=== PATIENT | female | born 1990 | race Caucasian/White ===

== ENCOUNTER 2023-04-21 15:17 | Emergency (ER) | payer OTHER, MEDICAID ==
[~2023-04-21] VITALS: Ht 177 cm; Wt 235.0 kg
[2023-04-21 15:55] LABS: BILIRUBIN,URINE NEGATIVE (NEGATIVE); CLARITY,URINE SL CLOUDY; COLOR,URINE YELLOW; GLUCOSE, URINE (UA) NEGATIVE (NEGATIVE); KETONES,URINE NEGATIVE (NEGATIVE); LEUKOCYTE ESTERASE ,URINE TRACE (NEGATIVE); NITRITE,URINE NEGATIVE (NEGATIVE); PROTEIN,URINE NEGATIVE (NEGATIVE)
--- NOTE | 2023-04-21 16:02 | ED GU-Female ---
General Chief Complaint: - Reproductive Stated Complaint: VAG BLEEDING/CRAMPING/BLOATED Nursing Triage Note: PT CO OF 13 DAYS OF VAGINAL BLEEDING. PT STATES HAS ALOT OF BLOATING. STARTED COUPLE WEEKS NOT GETTING ANY BETTER. PT STATES WAS SEEN AT [facility] IN [place] YESTERDAY AND STARTED ON AN ANITBIOTIC Source: patient Exam Limitations: no limitations (MARISA HARDWICK APRN) History of Present Illness Date Seen by Provider: Apr 21, 2023 Time Seen by Provider: 15:44 Initial Comments 32-year-old female presents to the ER with complaints of lower abdominal cramping, vaginal bleeding for the last 13 days, bloating, gassiness, and epigastric pain. She reports that she was seen at [facility] in [place] yesterday and started on an antibiotic for a urinary tract infection. She states that the bleeding is not heavy, describes it as "light to regular." She reports during the 13 days of bleeding she had a day or 2 without bleeding. She states that she has been trying ibuprofen for pain. She also states that she was having some heartburn the other day. Reports nausea, denies vomiting. Denies diarrhea, dysuria, fevers. Last bowel movement was this morning and normal. She states this menstrual cycle started on April 05. Her last normal menstrual cycle was on March 12. (MARISA HARDWICK APRN) Allergies and Home Medications Allergies Coded Allergies: No Known Drug Allergies (Unverified , 04/21/23) Patient Home Medication List Home Medication List Reviewed: Yes (MARISA HARDWICK APRN) Metronidazole (Metronidazole) 500 Mg Tablet, 500 MG PO BID Prescribed by: Marisa Hardwick on 04/21/231952 Review of Systems Review of Systems Constitutional: see HPI (MARISA HARDWICK APRN) Past Dahlqzj-Koftav-Ptlcyv Hx Patient Social History Tobacco Use?: Yes Tobacco type used: Cigarettes Smoking Status: Current Everyday Smoker Substance use?: Yes Substance type: Marijuana Substance frequency: Once in a while Alcohol Use?: Yes Alcohol Frequency: Rarely Pt feels they are or have been: No (MARISA HARDWICK APRN) Past Medical History Surgery/Hospitalization HX: APPY, LYMPH NODE SURG Last Menstrual Period: April 05, 2023 (MARISA HARDWICK APRN) Physical Exam Vital Signs Vital Signs - First Documented 04/21/23 04/21/23 15:25 20:19 Temp 36.5 Pulse 81 Resp 18 B/P (MAP) 140/91 (107) Pulse Ox 98 O2 Delivery Room Air (NALDO RODRIGUEZ MD) Vital Signs Capillary Refill : Less Than 3 Seconds (MARISA HARDWICK APRN) Height, Weight, BMI Height: '" Weight: lbs. oz. kg; 75.00 BMI Method: General Appearance: WD/WN, no apparent distress Neck: supple, normal inspection Cardiovascular: regular rate, rhythm Respiratory: lungs clear, normal breath sounds, no respiratory distress, no accessory muscle use Gastrointestinal: normal bowel sounds, soft, tenderness (Mild generalized tenderness) Pelvic: normal external exam, discharge, vaginal bleeding (Scant amount) Extremities: normal range of motion, normal inspection Neurologic/Psychiatric: alert, normal mood/affect Skin: normal color, warm/dry (MARISA HARDWICK APRN) Progress/Results/Core Measures Suspected Sepsis SIRS Temperature: Pulse: 81 Respiratory Rate: 18 Laboratory Tests 04/21/23 16:08: White Blood Count 12.3H Blood Pressure 140 /91 Mean: 107 Laboratory Tests 04/21/23 16:08: Creatinine 0.82, Platelet Count 212, Total Bilirubin 0.3 (MARISA HARDWICK EMBOSSER OPERATOR) Results/Orders Vital Signs/I&O Capillary Refill : Less Than 3 Seconds (MARISA HARDWICK EMBOSSER OPERATOR) Blood Pressure Mean: 107 Progress Note : Progress Note Patient seen and evaluated, resting comfortably in bed, no acute distress. Based on exam and symptoms, work-up initiated including CBC, CMP, UA, urine , amylase, lipase. Urine was found to be positive. Results discussed with patient. hCG level and OB ultrasound ordered. Labs and US reviewed. CBC shows slightly elevated WBCs 12.3. CMP shows slightly elevated chloride 108. HCG 723. UA shows trace leukocytes, 1+ RBCs, 2-5 WBCs, 25-50 squamous epithelial cells, trace bacteria. This is likely a contaminated specimen, but patient is already on an antibiotic for a UTI. Wet prep shows many WBCs, many trichomonas, rare clue cells, and no yeast. Patient is RH negative. Rhogam ordered. US shows no demonstrated intrauterine , probable hemorrhagic cysts of both ovaries and additional simple appearing right ovarian or paraovarian cyst. Patient does have a history of ovarian cysts. No sizable free pelvic fluid. is likely too early, or patient is miscarrying. I spoke with Dr. Bhakta about patient. He will see her for repeat HCG level. He recommends going ahead and treating the trichomonas with Flagyl. Results discussed with patient. Discharge instructions and return precautions provided. (MARISA HARDWICK APRN) Diagnostic Imaging Diagonstic Imaging: Ultrasound Plain Films/CT/US/NM/MRI: abdomen Comments [facility] [place], [place] NAME: [facility] REC#: [id number] PT STATUS: REG ER : 1990 PHYSICIAN: MARISA HARDWICK APRN ADMIT DATE: 04/21/23/ER Signed Date of Exam:04/21/23 US OB<14 WKS SNGLE W/TRANSVAG Exam: Ultrasound OB less than 14 weeks. Date: April 21, 2023. Indication: 32-year-old female, vaginal bleeding. Comparison: None. Findings: Transabdominal and endovaginal approaches were utilized. The uterus measures 8.1 x 4.4 x 5.3 cm in size. Endometrial thickness measures 9 mm. There is no identified intrauterine gestational sac. The right ovary measures 6.5 x 3.0 x 5.0 cm in size. The left ovary measures 5.0 x 3.9 x 5.0 cm in size. There is blood flow to both ovaries based on color Doppler and spectral Doppler analysis. There is a cystic lesion in the right ovary with lacelike internal septations most compatible with hemorrhagic cyst. This measures approximately 2.4 x 2.8 cm in size. There is an additional more simple appearing cystic mass in the right adnexa which measures up to 2.5 cm in size. This may reflect an ovarian or paraovarian cyst. There is also a cystic mass in the left ovary with fairly lacelike internal septations measuring approximately 4.9 x 3.2 cm in size likely reflecting hemorrhagic cyst. There is no sizable volume free pelvic fluid demonstrated. Impression: 1. No demonstrated intrauterine . 2. Probable hemorrhagic cysts of both ovaries bilaterally. Additional more simple appearing right ovarian or paraovarian cyst. 3. No sizable volume free pelvic fluid. Dictated by: Dictated on workstation # [id number] Dict: 04/21/231919 Trans: 04/21/231935 CVB [id number] Interpreted by: ILIA CH MD Electronically signed by: ILIA CH MD 04/21/231935 (MARISA HARDWICK APRN) Departure Impression Primary Impression: Trichomoniasis Additional Impressions: Positive test Hemorrhagic ovarian cyst Vaginal bleeding affecting early Disposition: HOME, SELF-CARE Condition: Stable Departure-Patient Inst. Decision time for Depature: 19:48 (MARISA HARDWICK APRN) Referrals: MIKAYLA BHAKTA,LOCAL PHYSICIAN (PCP) Primary Care Physician Patient Instructions: Bleeding in Early (DC), Trichomoniasis Add. Discharge Instructions: Complete full course of metronidazole as directed. Continue your antibiotic for your UTI. Call Dr. Bhakta's office tomorrow to schedule an outpatient follow-up for a repeat hCG blood draw. All of your partners need to be tested and treated for STDs. You should abstain from sex for 2 weeks. Return for significant vaginal bleeding, severe pain, dizziness, passing out, any other new, concerning, or worsening symptoms. All discharge instructions reviewed with patient and/or family. Voiced understanding. Scripts Metronidazole (Metronidazole) 500 Mg Tablet 500 MG PO BID for 7 Days, #13 TAB 0 Refills Prov: MARISA HARDWICK APRN 04/21/23 ATTENDING PHYSICIAN NOTE: I was physically present as attending physician in the emergency department during the care of this patient, but I was not directly involved in the decision making or delivery of care for this patient. (NALDO RODRIGUEZ MD) MARISA HARDWICK APRN Apr 21, 2023 16:02 NALDO RODRIGUEZ MD Apr 25, 2023 13:36
[2023-04-21 16:08] LABS: BACTERIA,URINE TRACE /HPF; SQUAMOUS EPITHELIAL CELL,UR 25-50 /HPF
[2023-04-21 16:19] LABS: BASOPHILS # (AUTO) 0.1 10^3/uL (0.0-0.1); BASOPHILS % (AUTO) 1 % (0-10); EOSINOPHILS # (AUTO) 0.2 10^3/uL (0.0-0.3); EOSINOPHILS % (AUTO) 1 % (0-10); HEMATOCRIT 37 % (35-52); HEMOGLOBIN 12.8 g/dL (11.5-16.0); LYMPHOCYTES # (AUTO) 2.6 X 10^3 (1.0-4.0); LYMPHOCYTES % (AUTO) 21 % (12-44); MEAN CORPUSCULAR HEMOGLOBIN 30 pg (25-34); MEAN CORPUSCULAR HGB CONC 35 g/dL (32-36); MEAN CORPUSCULAR VOLUME 85 fL (80-99); MEAN PLATELET VOLUME 9.6 fL (9.0-12.2); MONOCYTES # (AUTO) 0.8 X 10^3 (0.0-1.0); MONOCYTES % (AUTO) 7 % (0-12); NEUTROPHILS # (AUTO) 8.6 X 10^3 (1.8-7.8); NEUTROPHILS % (AUTO) 70 % (42-75); PLATELET COUNT 212 10^3/uL (130-400); WHITE BLOOD COUNT 12.3 10^3/uL (4.3-11.0)
[2023-04-21 16:28] LABS: ALBUMIN 4.1 GM/DL (3.2-4.5); POTASSIUM 3.7 MMOL/L (3.6-5.0)
[2023-04-21 16:29] LABS: CALCIUM 9.1 MG/DL (8.5-10.1)
[2023-04-21 16:31] LABS: TOTAL PROTEIN 6.8 GM/DL (6.4-8.2)
[2023-04-21 16:32] LABS: BILIRUBIN,TOTAL 0.3 MG/DL (0.1-1.0)
[2023-04-21 16:34] LABS: CREATININE SERUM 0.82 MG/DL (0.60-1.30)
--- NOTE | 2023-04-21 19:25 | Diagnostic Imaging Report ---
Exam: Ultrasound OB less than 14 weeks. Date: April 21, 2023. Indication: 32-year-old female, vaginal bleeding. Comparison: None. Findings: Transabdominal and endovaginal approaches were utilized. The uterus measures 8.1 x 4.4 x 5.3 cm in size. Endometrial thickness measures 9 mm. There is no identified intrauterine gestational sac. The right ovary measures 6.5 x 3.0 x 5.0 cm in size. The left ovary measures 5.0 x 3.9 x 5.0 cm in size. There is blood flow to both ovaries based on color Doppler and spectral Doppler analysis. There is a cystic lesion in the right ovary with lacelike internal septations most compatible with hemorrhagic cyst. This measures approximately 2.4 x 2.8 cm in size. There is an additional more simple appearing cystic mass in the right adnexa which measures up to 2.5 cm in size. This may reflect an ovarian or paraovarian cyst. There is also a cystic mass in the left ovary with fairly lacelike internal septations measuring approximately 4.9 x 3.2 cm in size likely reflecting hemorrhagic cyst. There is no sizable volume free pelvic fluid demonstrated. Impression: 1. No demonstrated intrauterine . 2. Probable hemorrhagic cysts of both ovaries bilaterally. Additional more simple appearing right ovarian or paraovarian cyst. 3. No sizable volume free pelvic fluid. Dictated by: Dictated on workstation # [id number]
[2023-04-21] MEDS: RHO(D) IMMUNE GLOBULIN 300 MCG/2 ML SYRINGE IM/IV ONE ×3 (19:45→20:16)
[2023-04-21] MEDS ORDERED: METR-145 PO (19:53)
[2023-04-21] MEDS ORDERED: metroNIDAZOLE 500 MG (FLAGYL) TAB PO ONE (20:00)
[2023-04-21 20:19] VITALS: BP 139/98
== END 2023-04-21 20:19 | disposition home or self-care (01) ==
LOC: ER 15:21
DX: O20.9 Hemorrhage in early pregnancy, unspecified (principal); O34.81 Maternal care for other abnormalities of pelvic organs, first trimester; N83.201 Unspecified ovarian cyst, right side; N83.202 Unspecified ovarian cyst, left side; O23.591 Infection of other part of genital tract in pregnancy, first trimester; A59.01 Trichomonal vulvovaginitis; O99.331 Smoking (tobacco) complicating pregnancy, first trimester; F17.210 Nicotine dependence, cigarettes, uncomplicated; N39.0 Urinary tract infection, site not specified; Z90.49 Acquired absence of other specified parts of digestive tract; Z3A.00 Weeks of gestation of pregnancy not specified
CPT/HCPCS: 36415; 76801; 76817; 80053; 81000; 83690; 84702; 84703; 85025; 86900; 86901; 87210; 87491; 87591